=== PATIENT | male | born 1960 | race Caucasian/White ===

== ENCOUNTER 2022-10-31 17:56 | Emergency (ER) | payer OTHER, SELFPAY ==
--- NOTE | ~2022-10-31 | XR_ITS ---
EXAMINATION: XR CHEST CLINICAL INFORMATION: Weakness COMPARISON: None TECHNIQUE: Frontal view of the chest was obtained. FINDINGS: Low lung volumes. No focal consolidation or mass. Normal pulmonary vascularity. No pleural effusion or pneumothorax. Normal heart size. No acute osseous abnormality. XR/XR chest 1V IMPRESSION: Low lung volumes but no acute pulmonary disease.
[2022-10-31 18:04] VITALS: BP 126/74; PULSE 54; O2SAT 98; BMI 20.4
[2022-10-31 18:09] VITALS: BP 112/47; PULSE 54; RESP 18; TEMP 37.1; O2SAT 99
--- NOTE | 2022-10-31 18:19 | ED.GENADULT ---
HPI - General Adult General Chief complaint: Recheck/Abnormal Lab/Rx Stated complaint: ABN LABS,DIZZY X'S 1WK [facility] Time Seen by Provider: 10/31/22 18:19 Source: patient and EMS Mode of arrival: EMS Limitations: no limitations History of Present Illness HPI narrative: Patient is a 62 year old assigned male at with a history of anemia and MRSA currently on IV ABX via PICC line presenting to the emergency department today from [place] with a decreased hemaglobin of 6.7. Patient states that he intermittently feels light headed but that is his baseline. Patient denies any dizziness, abdominal pain, nausea, vomiting, fever, chills, blurry vision, double vision, loss of vision, chest pain, difficulty breathing, shortness of breath, back pain, night sweats, pain with urination, increased urinary frequency, increased urinary urgency, blood in his urine or stool, syncope or a near syncopal episode, recent trauma or falls, bowel incontinence, bladder incontinence, bowel retention, bladder retention, or any other complaints at this time. I reviewed the patient's paperwork that shows he was recently admitted at [facility] for MRSA and at that time had a hgb as low as 2.9 and was transfued 5 units of PRBCs. Relieving factors: none Exacerbating factors: none Associated symptoms: denies other symptoms Treatments prior to arrival: none Related Data Allergies Allergy/AdvReac Type Severity Reaction Status Date / Time Unable to Assess Allergy Unverified 10/31/22 18:20 Review of Systems Constitutional: Constitutional: Reports no additional constitutional complaints, Denies chills, Denies fever(s) and Denies night sweats Eyes: Eyes: Reports no additional eye complaints, Denies blurry vision, Denies change in vision, Denies diplopia, Denies eye discharge, Denies loss of vision and Denies eye pain ENT: Denies dizziness Cardiovascular: Cardiovascular: Reports no additional cardiovascular complaints, Denies chest pain, Denies lightheadedness, Denies Loss of Consciousness and Denies dyspnea Respiratory: Respiratory: Reports no additional respiratory complaints and Denies dyspnea Gastrointestinal: Gastrointestinal: Reports no additional gastrointestinal complaints, Denies abdominal pain, Denies melena, Denies hematochezia, Denies change in bowel habits and Denies change in stool character Genitourinary: Genitourinary: Reports no additional male genitourinary complaints, Denies hematuria, Denies oliguria, Denies difficulty urinating, Denies dysuria, Denies urinary frequency, Denies urinary hesitancy, Denies urinary incontinence and Denies urinary urgency Musculoskeletal: Musculoskeletal: Reports no additional musculoskeletal complaints, Denies numbness and Denies tingling Neurologic: Denies dizziness, Denies loss of vision, Denies numbness and Denies tingling Comments: intermittent lightheadedness Psychiatric: Psychiatric: Reports no additional psychiatric complaints Endocrine: Endocrine: Reports no additional endocrine complaints Hematologic/Lymphatic: Hematologic/Lymphatic: Reports no additional hematologic/lymphatic complaints Allergic/Immunologic: Allergic/Immunologic: Reports no additional allergic/immunologic complaints [facility] Past Medical History Attestation statement: The following information was validated with the patient. Source: old records reviewed, nursing notes reviewed and other ([place] [facility] records reviewed) Social History Social History Advance Directives: No Advance Directives Information Provided: No Physical Exam ED Vital Signs: Vital Signs - 24 hr 10/31/22 18:09 10/31/22 20:14 11/01/22 00:23 Temperature 98.7 F 97.8 F 97.5 F Pulse Rate 54 56 47 L Respiratory Rate 18 18 14 Blood Pressure 112/47 L 107/48 L 112/52 L Pulse Oximetry 99 98 98 Oxygen Delivery Method Room Air Room Air Room Air 11/01/22 02:24 11/01/22 02:42 Temperature 97.3 F 97.4 F Pulse Rate 50 49 L Respiratory Rate 14 14 Blood Pressure 109/54 L 112/55 L Pulse Oximetry Oxygen Delivery Method BMI result Body Mass Index 20.4 Const General: cooperative, no acute distress, alert and awake Nutritional Appearance: well nourished Orientation/consciousness: patient oriented x3 Limitations: no limitations HENMT Head: Yes normal to inspection and Yes atraumatic Ears: hearing grossly normal bilaterally and external ears normal General nose exam: Normal external nose present, no nasal discharge noted and no epistaxis Face and sinus: Yes normal facial exam, No abrasion and No laceration Mouth: Normal oral and palatal mucosa present, no drooling and no muffled voice Eyes General: appearance normal, both eyes and all related structures Periorbital: periorbital findings normal Eyelids: Yes eyelids normal Conjunctivae: conjunctivae normal Pupils: Equal, round and reactive pupils present EOM: EOMs intact bilaterally Neck Neck: Yes normal visual inspection, Yes full ROM and Yes no lymphadenopathy Chest Chest palpation & inspection: normal inspection of the chest Resp Effort & Inspection: normal respiratory effort and able to speak in complete sentences Auscultation: clear to auscultation bilaterally Cardio Rate: regular rate Rhythm: regular rhythm GI Inspection: Yes normal to inspection Skin Other: decubitus ulcer in various stages of healing, per [facility] notes - this is patient's baseline Neuro General: patient oriented x3 and moves all extremities Cranial nerves: Yes Equal, round and reactive pupils present Cognition (Neuro): normal cognition Motor exam (neuro): 5/5 motor strength present throughout Sensory Exam: Normal double simultaneous stimulation for sensation Coordination: [id number] test normal Extrem General: Yes normal to inspection, Yes full ROM and Yes capillary refill normal Psych Appearance: grossly normal Mental Status: mental status grossly normal Affect: normal affect Attitude: cooperative Thought process: Normal thought process present Thought content: Normal thought content present Insight: Good insight present (Psych) Medical Decision Making Medical Decision Making MDM Narrative: Patient is a 62 year old assigned male at with a history of anemia and MRSA currently on IV ABX via PICC line presenting to the emergency department today with a decreased hemaglobin. Patient's physical exam showed a decubitus ulcer in various stages of healing, per [facility] notes - this is at its baseline. Patient's blood work showed a hgb of 7.7. Patient's EKG was unremarkable. Patient's chest x-ray showed no acute process. I explained my physical exam findings as well as all test results to the patient. I answered all questions asked by the patient. Patient received 1 unit of PRBCs which he stated helped his symptoms significantly. I stressed the importance of the patient taking his medication as prescribed. I stressed the importance of the patient following up with his primary care provider. I stressed the importance of the patient returning to the emergency department immediately if his symptoms were to worsen or if he were to develop any dizziness, shortness of breath, difficulty breathing, chest pain, blurry vision, loss of vision, nausea, vomiting, abdominal pain, fever, chills, back pain, or any other complaints. Patient verbalized agreement and understanding with this treatment plan and discharge. Differential Diagnosis Differential Diagnoses: The differential diagnosis associated with the presentation includes chronic anemia requiring transfusion Lab Data MDM Lab Attestation statement: I reviewed the patient's lab results. Result Diagrams: 10/31/22 19:41 10/31/22 19:41 Labs: Lab Results 10/31/22 10/31/22 10/31/22 Range/Units 19:41 19:41 19:41 WBC 4.3 L (4.8-10.8) X10*3/uL RBC 2.70 L (4.60-5.80) X10*6/uL Hgb 7.7 L (14.0-18.0) g/dl Hct 22.4 L (42.0-52.0) % MCV 83.0 (80.0-98.0) fL MCH 28.5 (27.0-33.0) pg MCHC 34.4 (31.0-36.0) g/dl RDW 13.3 (11.0-16.0) % Plt Count 153 L (160-400) X10*3/uL MPV 11.2 (9.4-12.4) fL Immature Gran % (Auto) 2.1 H (0.0-0.4) % Neut % (Auto) 69.8 (45-73) % Lymph % (Auto) 24.9 (20-40) % [place] % (Auto) 3.0 (2-11) % Eos % (Auto) 0.0 (0-4) % Baso % (Auto) 0.2 (0-2) % Lymph # (Auto) 1.1 L (1.2-4.9) X10*3/uL [place] # (Auto) 0.1 (0.1-1.2) X10*3/uL Eos # (Auto) 0.0 (0.0-0.4) X10*3/uL Baso # (Auto) 0.0 (0.0-0.2) X10*3/uL Abs Immat Gran (auto) 0.09 H (0.00-0.03) X10*3/uL Absolute Neuts (auto) 3.0 (2.0-8.3) x10*3/uL Absolute Nucleated RBC 0.000 (0.0-0.012) X10*3/uL Nucleated RBC % (auto) 0.0 (0.0-0.2) /100WBC PT 12.4 (10.0-13.1) SEC INR 1.1 (0.9-1.1) APTT 34.1 (26.0-36.4) SEC Sodium 134 L (135-145) mmol/L Potassium 4.9 (3.3-5.1) mmol/L Chloride 102 (96-108) mmol/L Carbon Dioxide 24 (22-29) mmol/L Anion Gap 13 (12-20) BUN 12 (9-16) mg/dL Creatinine 0.74 (0.5-1.4) mg/dL Estim Creat Clear Calc 102.4 Estimated GFR > 60 Random Glucose 111 (60-115) mg/dL Calcium 9.1 (8.4-10.2) mg/dL Magnesium 1.7 (1.6-2.6) mg/dL Total Bilirubin 0.8 (0.0-1.0) mg/dL AST 26 (5-37) U/L ALT 27 (0-40) U/L Alkaline Phosphatase 73 (39-117) U/L Troponin I High Sens (<3.5-35.0) ng/L Total Protein 6.4 L (6.5-8.0) g/dL Albumin 3.8 (3.5-5.0) g/dL Blood Type Antibody Screen Antibody Identification EMIL, Polyspecific Positive EMIL Work-up Crossmatch Enhanced Crossmatch Blood Bank Comment 10/31/22 10/31/22 Range/Units 19:41 19:41 WBC (4.8-10.8) X10*3/uL RBC (4.60-5.80) X10*6/uL Hgb (14.0-18.0) g/dl Hct (42.0-52.0) % MCV (80.0-98.0) fL MCH (27.0-33.0) pg MCHC (31.0-36.0) g/dl RDW (11.0-16.0) % Plt Count (160-400) X10*3/uL MPV (9.4-12.4) fL Immature Gran % (Auto) (0.0-0.4) % Neut % (Auto) (45-73) % Lymph % (Auto) (20-40) % [place] % (Auto) (2-11) % Eos % (Auto) (0-4) % Baso % (Auto) (0-2) % Lymph # (Auto) (1.2-4.9) X10*3/uL [place] # (Auto) (0.1-1.2) X10*3/uL Eos # (Auto) (0.0-0.4) X10*3/uL Baso # (Auto) (0.0-0.2) X10*3/uL Abs Immat Gran (auto) (0.00-0.03) X10*3/uL Absolute Neuts (auto) (2.0-8.3) x10*3/uL Absolute Nucleated RBC (0.0-0.012) X10*3/uL Nucleated RBC % (auto) (0.0-0.2) /100WBC PT (10.0-13.1) SEC INR (0.9-1.1) APTT (26.0-36.4) SEC Sodium (135-145) mmol/L Potassium (3.3-5.1) mmol/L Chloride (96-108) mmol/L Carbon Dioxide (22-29) mmol/L Anion Gap (12-20) BUN (9-16) mg/dL Creatinine (0.5-1.4) mg/dL Estim Creat Clear Calc Estimated GFR Random Glucose (60-115) mg/dL Calcium (8.4-10.2) mg/dL Magnesium (1.6-2.6) mg/dL Total Bilirubin (0.0-1.0) mg/dL AST (5-37) U/L ALT (0-40) U/L Alkaline Phosphatase (39-117) U/L Troponin I High Sens 4.6 (<3.5-35.0) ng/L Total Protein (6.5-8.0) g/dL Albumin (3.5-5.0) g/dL Blood Type O Positive Antibody Screen POSITIVE Antibody Identification Inconclusive EMIL, Polyspecific NEGATIVE Positive EMIL Work-up TNP Crossmatch See Detail Enhanced Crossmatch See Detail Blood Bank Comment Technical Independent Interpretation I performed an independent interpretation of an: EKG Interpretation: Vent. Rate: 056 BPM ? ? Atrial Rate: 056 BPM P-R Int: 140 ms? QRS Dur: 090 ms QT Int: 414 ms ? ? ? P-R-T Axes: 127 147 136 degrees QTc Int: 399 ms ? Suspect limb lead reversal, interpretation assumes no reversal Unusual P axis, possible ectopic atrial bradycardia Right axis deviation Nonspecific ST abnormality Abnormal ECG No previous ECGs available DD/ 09 Radiology Impression Discussion of test interpretation with radiology: I have reviewed the radiologist's reading. Radiologist Impression: EXAMINATION: XR CHEST CLINICAL INFORMATION: Weakness COMPARISON: None TECHNIQUE: Frontal view of the chest was obtained. FINDINGS: Low lung volumes. No focal consolidation or mass. Normal pulmonary vascularity.? No pleural effusion or pneumothorax. Normal heart size. No acute osseous abnormality. XR/XR chest 1V IMPRESSION: Low lung volumes but no acute pulmonary disease. Dictated By: Baldomero Naik MD Signed By: Electronically signed by Baldomero Naik MD 10/31/221914 Discharge Plan Discharge Clinical Impression: Anemia Patient Disposition: Home, Self-Care Instructions: Anemia (ED) Additional Instructions: Follow up with your primary care provider. Return to the emergency department immediately if your symptoms worsen or if you develop any dizziness, shortness of breath, difficulty breathing, chest pain, blurry vision, loss of vision, nausea, vomiting, abdominal pain, fever, chills, back pain, or any other complaints. Print Language: Gabonese
--- NOTE | 2022-10-31 18:20 | ECG_ITS ---
Test Reason : weakness Blood Pressure : / mmHG Vent. Rate : 056 BPM Atrial Rate : 056 BPM P-R Int : 140 ms QRS Dur : 090 ms QT Int : 414 ms P-R-T Axes : 127 147 136 degrees QTc Int : 399 ms Suspect limb lead reversal, interpretation assumes no reversal Unusual P axis, possible ectopic atrial bradycardia Right axis deviation Nonspecific ST abnormality Abnormal ECG No previous ECGs available Referred By: Joie Tai Electronically Signed By:NICK BROOKS
[2022-10-31 19:47] LABS: MANUAL DIFF FLAG NO
[2022-10-31 19:59] LABS: Basophils Percent Auto 0.2 % (0-2); Hematocrit 22.4 % (42.0-52.0); Hemoglobin 7.7 g/dl (14.0-18.0); Imm Gran Abs Auto 0.09 X10*3/uL (0.00-0.03); Imm Gran Pct Auto 2.1 % (0.0-0.4); Lymphocytes Absolute Auto 1.1 X10*3/uL (1.2-4.9); Lymphocytes Percent Auto 24.9 % (20-40); Mean Corpuscular HGB Conc 34.4 g/dl (31.0-36.0); Mean Corpuscular Hemoglobin 28.5 pg (27.0-33.0); Mean Platelet Volume 11.2 fL (9.4-12.4); Monocytes Absolute Auto 0.1 X10*3/uL (0.1-1.2); Neutrophils Percent Auto 69.8 % (45-73); Platelet Count 153 X10*3/uL (160-400); Red Cell Distribution Width 13.3 % (11.0-16.0); White Blood Count 4.3 X10*3/uL (4.8-10.8)
[2022-10-31 20:00] LABS: INTERNATIONAL NORM RATIO 1.1 (0.9-1.1); Prothrombin Time 12.4 SEC (10.0-13.1)
[2022-10-31 20:03] LABS: Partial Thromboplastin Time 34.1 SEC (26.0-36.4)
[2022-10-31 20:14] VITALS: BP 107/48; PULSE 56; RESP 18; TEMP 36.6; O2SAT 98
[2022-10-31 20:17] LABS: Alanine Aminotransferase 27 U/L (0-40); Albumin Level 3.8 g/dL (3.5-5.0); Alkaline Phosphatase 73 U/L (39-117); Anion Gap 13 (12-20); Aspartate Amino Transferase 26 U/L (5-37); Bilirubin Total 0.8 mg/dL (0.0-1.0); Blood Urea Nitrogen 12 mg/dL (9-16); Calcium 9.1 mg/dL (8.4-10.2); Carbon Dioxide 24 mmol/L (22-29); Chloride 102 mmol/L (96-108); Creatinine Clr Calc Pharmacy 102.4; Estimated Glomerular Filt Rate > 60; Glucose Random 111 mg/dL (60-115); Magnesium 1.7 mg/dL (1.6-2.6); Potassium 4.9 mmol/L (3.3-5.1); Sodium 134 mmol/L (135-145); Total Protein 6.4 g/dL (6.5-8.0)
[2022-10-31 20:18] LABS: Troponin-I High Sensitivity 4.6 ng/L (<3.5-35.0)
[2022-11-01 00:23] VITALS: BP 112/52; PULSE 47; RESP 14; TEMP 36.4; O2SAT 98
[2022-11-01 02:24] VITALS: BP 109/54; PULSE 50; RESP 14; TEMP 36.3
--- NOTE | 2022-11-01 02:35 | PC.NURSE ---
Pt. resting while awaiting blood. Blood bank sent up blood, however, unable to document. Ran blood back down to blood bank and they re-issued. Blood is now infusing. Time showed an alert for over 15 minutes, however, blood was infusing within 10 minutes of receiving it on the unit. Pt. under no distress. VSS.
[2022-11-01 02:42] VITALS: BP 112/55; PULSE 49; RESP 14; TEMP 36.3
[2022-11-01 03:52] VITALS: BP 109/58; PULSE 46; RESP 14; TEMP 36.3
--- NOTE | 2022-11-01 05:06 | MHC.EDTECH ---
Call out to [facility] @[phone] to book BLS transport to [facility] ETA of [phone] was given
[2022-11-01 06:02] VITALS: BP 107/54; PULSE 54
== END 2022-11-01 09:10 | disposition skilled nursing facility (03) ==
PROVIDERS: Physician Assistant Medical; Emergency Provider Emergency Medicine
DX: D64.9 Anemia, unspecified (principal); R53.1 Weakness; Z86.14 Personal history of Methicillin resistant Staphylococcus aureus infection; Z79.2 Long term (current) use of antibiotics
CPT/HCPCS: 36415; 36430; 71045; 80053; 83735; 84484; 85025; 85610; 85730; 86850; 86870; 86880; 86885; 86900; 86901; 86920; 86921; 93005; 99284; 99285; P9016